=== PATIENT | male | born 1950 ===

== ENCOUNTER 2017-04-25 04:32 | Inpatient (IN) | payer SELFPAY ==
[~2017-04-25] VITALS: Ht 177.8 cm; Wt 70.1 kg
[2017-04-25 04:55] LABS: Calcium, Ionized (POC) 0.86 mmol/L (1.10-1.46); Chloride (POC) 108 mmol/L (98-108); Creatinine (POC) 7.4 mg/dL (0.8-1.3); Glucose (ISTAT POC) 140 mg/dL (70-99); Hemoglobin (POC) 8.2 g/dL (13.5-17.5); Potassium (POC) 4.4 mmol/L (3.5-5.5); Sodium (POC) 137 mmol/L (135-148); Total CO2 (POC) 17 mmol/L (21-32)
[2017-04-25 04:56] LABS: BASOPHILS ABSOLUTE AUTO 0.03 K/mm3 (0.00-0.23); BASOPHILS PERCENT AUTO 1 % (0-2); EOSINOPHILS ABSOLUTE AUTO 0.15 K/mm3 (0.00-0.68); EOSINOPHILS PERCENT AUTO 2 % (0-6); Hematocrit 27.5 % (37.0-53.0); Hemoglobin 8.9 g/dL (13.5-17.5); IMMATURE GRAN ABSOLUTE AUTO 0.09 K/mm3 (0.00-0.10); IMMATURE GRAN PERCENT AUTO 1 % (0-1); LYMPHOCYTES ABSOLUTE AUTO 0.72 K/mm3 (0.84-5.20); LYMPHOCYTES PERCENT AUTO 11 % (21-46); MONOCYTES ABSOLUTE AUTO 0.77 K/mm3 (0.16-1.47); MONOCYTES PERCENT AUTO 12 % (4-13); Mean Corpuscular HGB 29.5 pg (26.0-34.0); Mean Corpuscular HGB Conc 32.4 g/dL (31.5-36.5); Mean Corpuscular Volume 91 fL (80-100); Mean Platelet Volume 9.5 fL (9.1-12.4); NEUTROPHILS PERCENT AUTO 73 % (41-73); RDW Coefficient Variation 15.3 % (11.7-14.2); Red Blood Cell Count 3.02 M/mm3 (4.30-5.90); White Blood Cell Count 6.66 K/mm3 (4.00-11.30)
[2017-04-25 05:00] LABS: PCO2 Arterial 27.1 mmHg (35-45); PO2 Arterial 170 mmHg (80-100); pH Blood Arterial 7.34 (7.35-7.45)
[2017-04-25 05:03] LABS: Platelet Count 30 K/mm3 (150-400)
[2017-04-25 05:19] LABS: Albumin, Blood 2.6 g/dL (3.4-5.0); Albumin/Globulin Ratio 0.9 (0.8-1.8); Bilirubin, Total 0.5 mg/dL (0.1-1.0); Bun/Creatinine Ratio 11.2 (12.0-20.0); Calcium, Blood 6.3 mg/dL (8.5-10.1); Creatinine, Blood 6.49 mg/dL (0.60-1.20); Globulin, Blood 2.8 g/dL (2.2-4.0); Potassium, Blood 4.4 mmol/L (3.5-5.5); Total Protein, Blood 5.4 g/dL (6.4-8.2)
[2017-04-25 05:51] LABS: International Normalized Ratio 1.68; Prothrombin Time Results 17.8 Sec (9.7-11.5)
[2017-04-25 05:52] LABS: Troponin I 3.14 ng/mL (0.000-0.040)
[2017-04-25 07:24] LABS: U Amphetamine Screen Not Detected; U Barbituate Screen Not Detected; U Benzodiazapine Screen Not Detected; U Buprenorphine Screen Not Detected; U Cannabinoids Screen Not Detected; U Cocaine Screen Not Detected; U Methadone Screen Not Detected; U Methamphetamine Screen Not Detected; U Opiates Screen Not Detected; U Oxycodone Screen Not Detected; U Phencyclidine Screen Not Detected; U Propoxyphene Screen Not Detected
[2017-04-25 07:31] LABS: Prostate Specific Antigen >2000.000 ng/mL (0.000-4.000)
[2017-04-25 07:32] LABS: Creatinine, Urine Random 30.2 mg/dL (27.00-270.00)
== END 2017-04-25 12:01 | disposition short-term general hospital (02) | DRG 70 ==
LOC: ER 04:32 → ICUW 05:07
PROVIDERS: Emergency Medicine; Internal Medicine; Internal Medicine Nephrology
PROC: 0BH17EZ Insertion of Endotracheal Airway into Trachea, Via Natural or Artificial Opening (ICD-10-PCS; principal; 2017-04-25)
DX: G93.40 Encephalopathy, unspecified (principal); J96.00 Acute respiratory failure, unspecified whether with hypoxia or hypercapnia; I21.4 Non-ST elevation (NSTEMI) myocardial infarction; J69.0 Pneumonitis due to inhalation of food and vomit; N17.9 Acute kidney failure, unspecified; E87.2 Acidosis; D69.6 Thrombocytopenia, unspecified; M62.82 Rhabdomyolysis; N13.30 Unspecified hydronephrosis; D64.9 Anemia, unspecified; I12.9 Hypertensive chronic kidney disease with stage 1 through stage 4 chronic kidney disease, or unspecified chronic kidney disease; N18.9 Chronic kidney disease, unspecified; N20.0 Calculus of kidney; Z85.46 Personal history of malignant neoplasm of prostate
CPT/HCPCS: 31720; 36415; 36600; 71045; 80047; 80053; 82550; 82570; 82803; 83605; 83690; 83880; 83930; 84484; 84540; 85014; 85025; 85384; 85610; 85730; 87040; 87070; 87086; 87205; 93005; 93010; 94002; 96374; 99291; C9113; G0103; J1956; J2250; J3010; J3370; J7030